=== PATIENT | female | born 1985 | race Caucasian/White ===

== ENCOUNTER → 2025-01-16 | Emergency (ER) | payer OTHER ==
[~2025-01-16] VITALS: Ht 162.6 cm; Wt 54.5 kg
[~2025-01-16] MED LIST: AMPH10CA PO; IOHEXOL 350 MG/ML 100 ML VIAL ONE; LETR2.5 PO; METH-387 PO; PROP10TA73 PO; VENL25TA47 PO
[2025-01-16 13:02] LABS: PLATELET COUNT (AUTO) 238 K/uL (150-450); RED BLOOD CELL COUNT(AUTO) 4.18 MIL/uL (4.00-5.20); RED CELL DISTRIBUTION WIDTH 12.5 % (11.5-14.5); WHITE BLOOD COUNT (AUTO) 4.7 K/uL (4.5-11.0)
[2025-01-16 13:17] LABS: GLUCOSE,RANDOM 105 mg/dL (70-110); SODIUM SERUM 140 mmol/L (136-145); TROPONIN I-HIGH SENSITIVITY 7 ng/L (<51); UREA NITROGEN, BLOOD 13 mg/dL (7-18)
[2025-01-16 13:18] LABS: CALCIUM, TOTAL 9.1 mg/dL (8.8-10.5); CREATININE 0.52 mg/dL (0.60-1.30); GLOMERULAR FILTR. RATE CALC > 60 mL/min (>60)
[2025-01-16 13:47] LABS: APPEARANCE,URINE CLEAR (CLEAR); GLUCOSE, URINE (UA) NEGATIVE (NEGATIVE); LEUKOCYTE ESTERASE ,URINE NEGATIVE (NEGATIVE); NITRATE,URINE NEGATIVE (NEGATIVE); OCCULT BLOOD,URINE NEGATIVE (NEGATIVE); SPECIFIC GRAVITIY, URINE 1.013 (1.003-1.030)
[2025-01-16 13:48] LABS: HCG,QUAL URINE NEGATIVE (NEGATIVE)
[2025-01-16] MEDS: SODIUM CHLORIDE 0.9% 1,000 ML IV ONE (14:36)
[2025-01-16] MEDS: MAGNESIUM OXIDE 400 MG TABLET PO ONE (16:44)
[2025-01-16 17:40] VITALS: BP 113/69; PULSE 120; RESP 16; TEMP 98; O2SAT 100
[2025-01-16] MEDS: PROPRANOLOL HCL 10 MG TABLET PO ONE (19:30)
== END | disposition home or self-care (01) ==
LOC: EMS 12:36
DX: E05.90 Thyrotoxicosis, unspecified without thyrotoxic crisis or storm (principal); I47.11 Inappropriate sinus tachycardia, so stated; E83.42 Hypomagnesemia; F32.A Depression, unspecified; F90.9 Attention-deficit hyperactivity disorder, unspecified type; R06.02 Shortness of breath; Z79.811 Long term (current) use of aromatase inhibitors; Z79.899 Other long term (current) drug therapy; Z85.3 Personal history of malignant neoplasm of breast; Z90.13 Acquired absence of bilateral breasts and nipples
CPT/HCPCS: 99285; 96360; 71275; 93971; 71045; 80048; 81003; 83735; 83880; 84439; 84443; 84484; 85025; 93005; 84703; 36415; Q9967; J7030